=== PATIENT | male | born 1990 ===

== ENCOUNTER → 2022-06-26 10:18 | Outpatient (CLI) | payer OTHER, SELFPAY ==
--- NOTE | 2022-06-26 | DI.RAD.S_ITS ---
PROCEDURE: XR THORACIC SPINE 2V INDICATIONS: Pain in unspecified knee/Pain in unspecified knee TECHNIQUE: 2 views of the thoracic spine were acquired. COMPARISON: [facility], CR, XR THORACIC SPINE 3 VIEWS, 06/18/2022, 14:59. FINDINGS: Bones: No acute fractures or dislocations. No suspicious bony lesions. 12 pairs of ribs are noted, and appear intact where visualized. Mild multilevel disc height loss and endplate spurring. Soft tissues: No paravertebral stripe thickening. IMPRESSION: 1. No acute thoracic spine fracture identified radiographically. If symptoms persist, follow-up radiographs and/or CT may be helpful for further evaluation. 2. Mild multilevel degenerative changes of the thoracic spine. Dictated by: Matt Huang M.D. on 06/27/2022 at 12:31 Approved by: Matt Huang M.D. on 06/27/2022 at 12:34
--- NOTE | 2022-06-26 | DI.RAD.S_ITS ---
PROCEDURE: XR KNEE RT 3V INDICATIONS: Pain in unspecified knee/Pain in unspecified knee TECHNIQUE: 3 views of the knee were acquired. COMPARISON: None. FINDINGS: Bones: No fractures or dislocations. No suspicious bony lesions. Soft tissues: No joint effusion. No suspicious soft tissue calcifications. IMPRESSION: Right knee without acute fracture or dislocation. Significant degenerative changes. If there are persistent symptoms or clinical suspicion for pathology, then repeat radiographs or advanced imaging (CT or MRI) may be considered for further evaluation. Dictated by: Jesus Manuel Uribe M.D. on 06/26/2022 at 12:01 Approved by: Jesus Manuel Uribe M.D. on 06/26/2022 at 12:02
--- NOTE | 2022-06-26 | DI.RAD.S_ITS ---
PROCEDURE: XR KNEE LT 3V INDICATIONS: Pain in unspecified knee/Pain in unspecified knee TECHNIQUE: 3 views of the knee were acquired. COMPARISON: None. FINDINGS: Bones: No fractures or dislocations. No suspicious bony lesions. Soft tissues: No joint effusion. No suspicious soft tissue calcifications. IMPRESSION: Left knee without acute fracture or significant degenerative change. If there are persistent symptoms or clinical suspicion for pathology, then repeat radiographs or advanced imaging (CT or MRI) may be considered for further evaluation. Dictated by: Jesus Manuel Uribe M.D. on 06/26/2022 at 12:02 Approved by: Jesus Manuel Uribe M.D. on 06/26/2022 at 12:02
== END ==
PROVIDERS: Referring Provider Internal Medicine Cardiovascular Disease; Visit Provider Internal Medicine Cardiovascular Disease
DX: M47.814 Spondylosis without myelopathy or radiculopathy, thoracic region (principal); M54.6 Pain in thoracic spine; M25.561 Pain in right knee; M25.562 Pain in left knee
CPT/HCPCS: 72070; 73562